=== PATIENT | male | born 1955 | race Caucasian/White ===

== ENCOUNTER 2019-02-02 12:19 | Emergency (ER) | payer MEDICAID ==
[~2019-02-02] VITALS: Ht 172.7 cm; Wt 72.6 kg
[2019-02-02 12:20] VITALS: BP_SYST 162
--- NOTE | 2019-02-02 12:20 | NUR ---
BROUGHT IN BY [facility], PATIENT PLACED IN HALLWAY AND TRIAGED. REPORT GIVEN TO FOREIGN
--- NOTE | 2019-02-02 12:22 | NUR ---
PT BROUGHT IN BY [facility] AND PLACED IN HALLWAY. PT IS COOPERATIVE WITH STAFF. PT STATES HE TAKES BENAZAPRIL FOR HIGH BP AND IS COMPLIANT WITH MEDICATIONS.
--- NOTE | 2019-02-02 12:28 | NUR ---
DR WEN AT BEDSIDE FOR EVALUATION
--- NOTE | 2019-02-02 12:40 | NUR ---
Patient given written and verbal discharge instructions and verbalizes understanding. ER MD discussed with patient the results and treatment provided. Patient in stable condition. ID arm band removed Rx of NONE given. Patient educated on pain management and to follow up with PMD. Pain Scale 0/10. Opportunity for questions provided and answered. Medication side effect fact sheet provided.
== END 2019-02-02 12:40 ==
LOC: SED 12:19
DX: Z02.89 Encounter for other administrative examinations (principal); I10 Essential (primary) hypertension
CPT/HCPCS: 99281; 99283